=== PATIENT | female | born 1985 | race Caucasian/White ===

== ENCOUNTER 2016-10-22 16:02 | Inpatient (IN) | payer OTHER ==
--- NOTE | ~2016-10-22 | PN ---
Unit #: [id number] #: [id number] Patient: TERRIE WALSH [id number] [facility] [address] [place] [address] [id number] I MR#: [id number] NAME: TERRIE WALSH. ROOM: P257 Age: 30 Sex: F Admission Date: 10/22/2016 : 1985 Attending Physician: Claudio Garza M.D. Admitting Physician: Claudio Garza M.D. Primary Care Physician: Primary Care Physician Janay JUSTIN NOTES DATE OF SERVICE 10/25/2016 DISCUSSION Ms. Walsh is a 30-year-old white female who was seen today. Chart was reviewed and case was discussed with staff. She remains anxious, withdrawn, depressed, and rather seclusive to herself. Meanwhile, she has been cooperative with treatment recommendations and has been taking the medications and tolerating them fairly well with no reported side effects. MENTAL STATUS EXAMINATION Young white female who is casually dressed with fair personal hygiene, appears to be in no acute distress or discomfort. She was awake and alert on interaction with intact orientation. Her mood is anxious with congruent affect. She denies any suicidal or homicidal ideations and also denies any auditory or visual hallucinations. Her insight and judgment remain slightly impaired. TREATMENT PLAN 1. We will continue her on her current medications and treatment protocol. We will monitor her response to the medications and make further adjustments as needed. 2. We will continue to follow up. Dictated by... Sindy Magallanes/derrek TD: 10/26/2016 06:50 JOB #: [id number] [facility] PROGRESS NOTES X Claudio Garza MD PROGRESS NOTE
--- NOTE | ~2016-10-22 | PA ---
Unit #: [id number] #: [id number] Patient: TERRIE VERMA [id number] [facility] [address] [place] [address] [id number] MR#: [id number] NAME: TERRIE VERMA. ROOM: P257 Age: 30 Sex: F Admission Date: 10/22/2016 : 1985 Date of Assessment: Attending Physician: Claudio Garaz M.D. Admitting Physician: Claudio Garza M.D. Primary Care Physician: Primary Care Physician No PSYCHIATRIC ASSESSMENT DATE OF SERVICE 10/22/2016. IDENTIFYING DATA Ms. Ramirez is a 30-year-old single white female, who is a resident of [place], [place], and was transferred to us from [facility] in [place], [place]. CHIEF COMPLAINT "[facility] to [facility], but I have not been in the last 3 months. I have had several surgeries lately." HISTORY OF PRESENT ILLNESS Ms. Ramirez is a 30-year-old white female, who was transferred to us from the emergency room, where she presented reporting feeling very overwhelmed with life lately stating that she has had several surgeries lately and two hemorrhoidectomies and gallbladder removal "I had to move during that time as well and no one would help me move, so I really felt like I don't mean anything to anyone." The patient stated that she took an intentional overdose of Tylenol PM, Sudafed, lisinopril, and 40 naproxen with an intention to end her life and she stated "is it normal to regret that I did not . I had an in October and I have not been the same since." She reports that she has a job and she has been missing work due to illness and reports increasing depression, disturbed sleep, psychomotor retardation, poor energy level, anhedonia, feelings of hopelessness and helplessness, and suicidal ideation with an intent and plan and attempt and as such, was medically cleared at [facility] and was then transferred to us. SUBSTANCE ABUSE HISTORY The patient denies any alcohol or drug abuse. PAST PSYCHIATRIC HISTORY The patient has had a history of outpatient counseling in the past, and review of the medical records indicate that she is currently on Celexa 20 mg a day, but has not been able to show a therapeutic response to the medication. PAST MEDICAL HISTORY Status post hemorrhoidectomy, cholecystectomy, and asthma. ALLERGIES Sulfa drugs and iodine. Unit #: [id number] #: [id number] Patient: TERRIE VERMA PERSONAL AND SOCIAL HISTORY A 30-year-old white female, who reports that she lives at home with her boyfriend and two sons and a daughter and has 3 children in total and is currently employed, but has been missing work due to her health condition. MENTAL STATUS EXAMINATION Young white female, who was casually dressed with fair personal hygiene, appears to be in no acute distress or discomfort. She was awake and alert on interaction with intact orientation to time, place, and person. Her mood was anxious and depressed with a congruent affect. Her speech was slow and goal directed. She reports having suicidal ideations, but denies any homicidal ideations and also denies any auditory or visual hallucinations. Her insight and judgment remain significantly impaired. DIAGNOSTIC IMPRESSION Psychiatric: Major depressive disorder, recurrent, moderate, without psychotic features. Medical: Status post cholecystectomy, hemorrhoidectomy, and asthma. Stressors: Moderate psychosocial stressors. TREATMENT PLAN 1. The patient has presented with a history of substance abuse and mood disorder and has been decompensating and will need inpatient hospitalization for safety and stabilization. We will start her back on her home medications and we will adjust the medications and monitor response. 2. Supportive therapy was provided to the patient. 3. Safe, structured, and nourishing environment will be provided. ESTIMATED LENGTH OF STAY 5 to 7 days. ABILITY TO HELP SELF Limited. WILLINGNESS TO HELP SELF The patient appears to be willing to help self. STRENGTHS 1. Communicative. 2. Cooperative. PROBLEMS 1. Chronic dysphoric symptoms. 2. Poor social support system. DISCHARGE CRITERIA This will be contingent upon the patient's ability to show resolution of her depression and anxiety and her ability to stay safe to herself, particularly after discharge from the hospital. Dictated by... Sindy Magallanes/javy Unit #: [id number] #: [id number] Patient: TERRIE VERMA TD: 10/23/2016 12:53 JOB #: [id number] PSYCHIATRIC ASSESSMENT X Claudio Garza MD PSYCHIATRIC ASSESSMENT
--- NOTE | ~2016-10-22 | HP ---
Unit #: [id number] #: [id number] Patient: SHEYLA VERMA [id number] [place] [address] [id number] MR#: [id number] NAME: SHEYAL VERMA. ROOM: P257 Age: 30 Sex: F Admission Date: 10/22/2016 : 1985 Attending Physician: Claudio Garza M.D. Admitting Physician: Claudio Garza M.D. Primary Care Physician: Primary Care Physician No HISTORY AND PHYSICAL HISTORY OF PRESENT ILLNESS Sheyla is a 30 year old admitted to [address] [place] [address] with depression and after an overdose of Tylenol P.M., Sudafed, lisinopril and naproxen. PAST MEDICAL HISTORY 1. History of kidney stones. 2. Asthma. 3. History of migraine headaches. PAST SURGICAL HISTORY 1. Hemorrhoidectomy. 2. Cholecystectomy. 3. section x2. 4. Lithotripsy. ALLERGIES Sulfa, shell fish. SOCIAL HISTORY Smokes one pack per day. Drinks alcohol rarely. Admits to abusing opioids on occasion. FAMILY HISTORY Medically noncontributory. REVIEW OF SYSTEMS CONSTITUTIONAL: No fever or chills. HEENT: Denies any sore throat, ear pain or runny nose. CARDIOVASCULAR: Denies chest pain, irregular heart rhythm or palpitations. CHEST: Denies shortness of breath or cough. No hemoptysis. GASTROINTESTINAL: Denies nausea, vomiting, diarrhea or chronic constipation. ENDOCRINE: Denies history of increased thirst or urination. No recent significant weight loss or gain. GENITOURINARY: Denies dysuria, frequency, or hematuria. SKIN: Denies any rashes. HEMATOLOGIC: Denies history of increased bleeding or bruising. MUSCULOSKELETAL: Denies any hot, swollen joints. No generalized muscle pain. NEUROLOGIC: Denies problems with vision or speech. No frequent, severe headaches. No numbness, tingling or weakness in any extremities. Denies Unit #: [id number] #: [id number] Patient: SHEYLA VERMA loss of bladder or bowel control. CURRENT MEDICATIONS No orders received at the time of this dictation. PHYSICAL EXAMINATION GENERAL: Alert, well-nourished, in no apparent distress. VITAL SIGNS: Blood pressure 120/62, heart rate 80, respirations 16, temperature 98.6. SKIN: Warm and dry without rash or lesion. HEENT: Normocephalic. TMs not viewed. Oral and nasal passages clear. Conjunctivae clear. Pupils equal, round and reactive to light and accommodation. Extraocular movements intact. NECK: Supple without lymphadenopathy or thyromegaly. HEART: Regular rate and rhythm without murmur. LUNGS: Clear. ABDOMEN: Soft, nontender. : Not done. EXTREMITIES: No evidence of cyanosis, clubbing or edema. Moves all extremities without focal deficit. NEUROLOGICAL: Grossly within normal limits. Cranial Nerves: II: Visual gonzales are intact. III, IV AND : Extraocular movements are intact. Pupils are equal, round and reactive to light. V: Facial sensation is grossly normal. VII: Facial movements and expression are normal. VIII: Auditory acuity grossly intact. IX, X: Uvula is midline. Phonation is normal. XI: Patient shrugs shoulders and turns head normally. XII: Tongue protrudes in the midline. Sensory and Motor Function: Sensory and motor sensation is grossly normal. Motor: moves all extremities well. Coordination: Gait is normal. Deep Tendon Reflexes: Intact. IMPRESSION Psychiatric admission RECOMMENDATIONS PSYCHIATRIC: Per psychiatrist. MEDICAL: I see no contraindications to participating in facility's activities. MEDICAL PROGNOSIS Good. MEDICAL CONDITION Stable. Dictated by... Karen BrisenoANestor-Harmony. for Sindy Carmona/june TD: 10/23/2016 00:17 JOB #: [id number] Unit #: [id number] #: [id number] Patient: SHEYLA VERMA HISTORY AND PHYSICAL X Clarisse Ding X HISTORY AND PHYSICAL
--- NOTE | ~2016-10-22 | PN ---
Unit #: [id number] #: [id number] Patient: TERRIE VERMA [id number] [facility] [address] [place] [address] [id number] MR#: [id number] NAME: TERRIE VERMA. ROOM: P257 Age: 30 Sex: F Admission Date: 10/22/2016 : 1985 Attending Physician: Claudio Garza M.D. Admitting Physician: Claudio Garza M.D. Primary Care Physician: Primary Care Physician Janay JUSTIN NOTES DATE OF SERVICE: 10/23/2016 SUBJECTIVE Ms. Ramirez is a 30-year-old white female, who was seen today and chart was reviewed and the case was discussed with the staff. She has been anxious, withdrawn, and rather seclusive to herself. Meanwhile, she has been cooperative with the treatment recommendations and has been taking the medications and tolerating them fairly well with no reported side effects. MENTAL STATUS EXAMINATION Young white female, who was casually dressed with fair personal hygiene, appears to be in no acute distress or discomfort. She was awake and alert on interaction with intact orientation. Her mood was anxious with a congruent affect. She denies any suicidal or homicidal ideations and also denies any auditory or visual hallucinations. Her insight and judgment remain slightly impaired. TREATMENT PLAN 1. We will continue her on her current medications and treatment protocol and we will monitor her response to the medications and make further adjustments as needed. 2. We will continue to follow up. Dictated by... Sindy Magallanes/javy TD: 10/24/2016 11:09 JOB #: [id number] [facility] PROGRESS NOTES X Claudio Garza MD PROGRESS NOTE
--- NOTE | ~2016-10-22 | A ---
[facility] Nutrition Therapy DATE: 10/24/16 Patient: TERRIE VERMA Physician: SEBASTIEN Address: [address] [facility] Room/Bed: [address], Zip: [place] [address] Admit Date: 10/22/16 Date of : [birth year] Height: 5 6 Weight: 119 54.88100 NUTRITIONAL ASSESSMENT: REASON: NUTRITIONAL RISK POINT- EATING DISORDER WITH ACTIVE SYMPTOMS PATIENT ADMITTED FOR DEPRESSION AND INTENTIONAL O/D PMH: ASTHMA, KIDNEY STONES Anthropometrics: HT: 5'6", WT: 120#, BMI: 19.4, %IBW: 92 Labs: NONE Meds: DESYREL, CELEXA Assessment: CHART REIVEWED, EVENTS NOTED. PATIENT IS A 30 Y/O FEMALE ADMITTED FOR DEPRESSION AND INTENTIONAL O/D. PATIENT IS CURRENTLY UNEMPLOYED BUT MISSES WORK D/T ILLNESS, LIVES IN AN APARTMENT WITH HER BOYFRIEND AND 3 CHILDREN, SMOKES 1 PPD, AND ADMITES TO USING OPIOIDS ON OCCASION. PATIENT STATES A POOR APPETITE WITH A 50# WEIGHT LOSS X LAST SEVERAL MONTHS. NURSING REPORTS FAIR PO INTAKES. PATIENT DOES HAVE PURGING TENDENCIES, WHICH STAFF IS AWARE OF, AND PATIENT IS ON A BATHROOM LOCKOUT 2 HOURS AFTER EACH MEAL. PATIENT ALSO HAS A HX OF OUTPATIENT COUSELING AND HAS A SUSPECTED NON-COMPLIANCE WITH MEDICATIONS PRIOR TO ADMIT. THERE ARE NO SKIN OR GI ISSUES NOTED ATT. CURRENT PSYCH MEDS MAY CAUSE AN INCREASE IN WEIGHT AND APPETITE. PATIENT'S BMI IS WITHIN A HEALTHY RANGE AND SHE IS 92% OF HER IBW. FOLLOWING DISCHARGE, OUTPATIENT TREATMENT FOR EATING DISORDER IS HIGHLY RECOMMENDED AND ENCOURAGED. PATIENT IS ON A REGULAR DIET WITH LARGE PORTION ENTREES. Dx: INADEQUATE NUTRIENT INTAKE R/T CURRENT CONDITION, EATING DISORDER AEB PURGING TENDENCIES, SELF-REPORTED WEIGHT LOSS AND DECREASED APPETITE Intervention: 1. REGULAR DIET WITH LARGE PORTION ENTREES, 2. MEDS PER MD, 3. PSYCH Monitoring, Evaluation and Goals: 1. ADEQUATE PO INTAKES >50% OF MEALS 2. PREVENT, CORRECT MICRO/MACRO NUTRIENT DEFICIENCIES 3. MAINTAIN CURRENT WEIGHT, PREVENT FURTHER WEIGHT LOSS MONITOR: WEIGHTS, LABS, PO/FLUID INTAKES Recommendations: 1. CONTINUE REGULAR DIET TOLERATED [facility] Nutrition Therapy DATE: 10/24/16 Patient: TERRIE VERMA Physician: SEBASTIEN Address: [address] [facility] Room/Bed: [address] [place] [address], Zip: [place] [address] Admit Date: 10/22/16 Date of : [birth year] Height: 5 6 Weight: 119 54.65351 2. ENCOURAGE ADEQUATE PO AND FLUID INTAKES. CONTINUE WITH BATHROOM LOCKOUT AND MONITORING PATIENT FOR SYMPTOMS OF EATING DISORDER 3. MONITOR WEIGHTS ROUTINELY (EVERY 3-4 DAYS) 4. OBTAIN A BMP TO ENSURE PATIENT'S NUTRITIONAL LAB VALUES ARE WNL D/T EATING DISORDER. RD TO F/U PER PROTOCOL AND PRN R/T PATIENT MODERATELY COMPROMISED Respectfully, JAS CUELLAR, RD, LD [facility] cc: client file
--- NOTE | ~2016-10-22 | PN ---
Unit #: [id number] #: [id number] Patient: TERRIE WALSH [id number] [facility] [address] [place] [address] [id number] MR#: [id number] NAME: TERRIE WALSH. ROOM: P257 Age: 30 Sex: F Admission Date: 10/22/2016 : 1985 Attending Physician: Claudio Garza M.D. Admitting Physician: Claudio Garza M.D. Primary Care Physician: Primary Care Physician Janay JUSTIN NOTES DATE OF SERVICE 10/24/2016 DISCUSSION Ms. Walsh is a (1) __-year-old white female who was seen today. Chart was reviewed and case was discussed with the staff. She has been anxious and withdrawn though has not shown any agitation or irritability and has been cooperative with treatment recommendations as she has been taking the medications and tolerating them fairly well with no reported side effects. MENTAL STATUS EXAMINATION Young white female who is casually dressed with fair personal hygiene, appears to be in no acute distress or discomfort. She was awake and alert on interaction with intact orientation. Her mood is anxious with congruent affect. She denies any suicidal or homicidal ideations and also denies any auditory or visual hallucinations. Her insight and judgment remain slightly impaired. TREATMENT PLAN 1. We will continue her on her current medications and treatment protocol. We will monitor her response to the medications and make further adjustments as needed. 2. We will continue to follow up. Dictated by... Sindy Magallanes/madelyng TD: 10/25/2016 13:18 JOB #: [id number] [facility] PROGRESS NOTES X Claudio Garza MD PROGRESS NOTE
--- NOTE | ~2016-10-22 | PN ---
Unit #: [id number] #: [id number] Patient: TERRIE WALSH [id number] [facility] [address] [place] [address] [id number] MR#: [id number] NAME: TERRIE WALSH. ROOM: P257 Age: 30 Sex: F Admission Date: 10/22/2016 : 1985 Attending Physician: Claudio Garza M.D. Admitting Physician: Claudio Garza M.D. Primary Care Physician: Primary Care Physician Janay JUSTIN NOTES DATE 10/26/2016 DISCUSSION Ms. Walsh is a 30-year-old white female who was seen today and chart was reviewed and case was discussed with the staff. She has been anxious, withdrawn and rather seclusive to herself. Meanwhile, she has been cooperative with treatment recommendations and has been taking medications and tolerating them fairly well with no reported side effects. MENTAL STATUS EXAMINATION Young white female who was casually dressed with fair personal hygiene and appears to be in no acute distress or discomfort. She was awake and alert on interaction with intact orientation. Her mood was anxious and depressed with congruent affect. She denies any suicidal or homicidal ideations and also denies any auditory or visual hallucinations. Her insight and judgement remains slightly impaired. TREATMENT PLAN Will continue on current medications and treatment protocol. Will monitor her response and make further adjustments as needed. Dictated by... Sindy Magallanes/jamal TD: 10/26/2016 18:23 JOB #: [id number] [facility] PROGRESS NOTES X Claudio Garza MD PROGRESS NOTE
--- NOTE | ~2016-10-22 | DS ---
Unit #: [id number] #: [id number] Patient: TERRIE VERMA [id number] [facility] [address] [place] [address] [id number] MR#: [id number] NAME: TERRIE VERMA. ROOM: [facility] Age: 30 Sex: F Admission Date: 10/22/2016 : 1985 Discharge Date: Attending Physician: Claudio Garza M.D. Primary Care Physician: Primary Care Physician No DISCHARGE SUMMARY IDENTIFYING DATA Ms. Ramirez is a 30-year-old white female who was transferred to us from [facility] in [place], [place]. DISCHARGE DIAGNOSES Psychiatric: Major depressive disorder, recurrent, moderate, without psychotic features. Medical: Status post cholecystectomy, hemorrhoidectomy, and asthma. Stressors: Moderate psychosocial stressors. HISTORY OF PRESENT ILLNESS Please see initial psychiatric evaluation for details. PAST PSYCHIATRIC HISTORY Please see initial psychiatric evaluation for details. PAST MEDICAL HISTORY Please see initial psychiatric evaluation for details. HOSPITAL COURSE The patient [facility] and was oriented to the hospital environment. Routine p.r.n. medications were initiated, and she was started back on her home medications including her Celexa which was then increased to 40 mg a day and trazodone was also given to help her sleep. She was taking the medications regularly and was tolerating them fairly well and was able to show a decent therapeutic response with improvement in depression and anxiety, and was willing to continue treatment on an outpatient basis and as such, it was decided that she will be discharged home and will continue treatment on an outpatient basis. DISCHARGE MEDICATIONS Celexa 40 mg a day for depression and trazodone 100 mg at bedtime for sleep. DISCHARGE CONDITION Stable. PROGNOSIS Fair. Dictated by... Claudio Garza M.D. Unit #: [id number] #: [id number] Patient: TERRIE VERMA IAA/modl TD: 10/27/2016 11:49 JOB #: [id number] DISCHARGE SUMMARY X Claudio Garza MD X DISCHARGE SUMMARY
--- NOTE | ~2016-10-22 | DS ---
Unit #: [id number] #: [id number] Patient: TERRIE VERMA [id number] [facility] [address] [place] [address] [id number] MR#: [id number] NAME: TERRIE VERMA. ROOM: P257 Age: 30 Sex: F Admission Date: 10/22/2016 : 1985 Discharge Date: 10/29/2016 Attending Physician: Claudio Garza M.D. Primary Care Physician: Primary Care Physician No DISCHARGE SUMMARY JOB NOTE: ADDENDUM ADDENDUM Ms. Ramirez is a 30-year-old white female who was scheduled to be discharged home earlier in the week, however, she was complaining of persistent depression and feelings of hopelessness and suicidal ideations, and not having any good support system outside of the hospital over the weekend and as such, discharge planning was cancelled and she was maintained on suicide precautions and medications were maintained and was seen to be doing much better and was cooperative with treatment recommendations and was able to show a decent therapeutic response, and was willing to continue treatment on an outpatient basis and was denying any further suicidal ideations, intent, or plan and as such, it was decided that she will be discharged home on her current regimen. DISCHARGE CONDITION Stable. PROGNOSIS Fair. Dictated by... Sindy Magallanes/javy TD: 10/29/2016 07:35 JOB #: [id number] DISCHARGE SUMMARY X Claudio Garza MD X DISCHARGE SUMMARY
--- NOTE | ~2016-10-22 | PN ---
Unit #: [id number] #: [id number] Patient: TERRIE WALSH [id number] [facility] [address] [place] [address] [id number] I MR#: [id number] NAME: TERRIE WALSH. ROOM: P257 Age: 30 Sex: F Admission Date: 10/22/2016 : 1985 Attending Physician: Claudio Garza M.D. Admitting Physician: Claudio Garza M.D. Primary Care Physician: Primary Care Physician Janay ETIENNE PROGRESS NOTES DATE 10/28/2016 DISCUSSION Ms. Walsh is a 30-year-old white female who was seen today and chart was reviewed and case was discussed with the staff. She was scheduled to be discharge yesterday however, she reported persistent depression and anxiety and feelings of hopelessness and not feeling safe and as such discharge planning was cancelled. The patient was once again laying in bed very despondent and seclusive to herself with blunted affect and minimal interactions and she reports not feeling good. MENTAL STATUS EXAMINATION Young white female who was casually dressed with fair personal hygiene appears to be in no acute distress or discomfort. The patient was awake and alert and interaction with intact orientation. Her mood was anxious and depressed with a current affect. She reports having suicidal ideations but denies any homicidal ideation. Her insight and judgement remains slightly impaired. TREATMENT PLAN 1. We will continue her on her current medications and treatment protocol. We will monitor her response and make further adjustments as needed. 2. We will continue to follow up. Dictated by... Sindy Magallanes/june TD: 10/30/2016 04:19 JOB #: [id number] Unit #: [id number] #: [id number] Patient: TERRIE WALSH [facility] PROGRESS NOTES X Claudio Garza MD PROGRESS NOTE
== END 2016-10-29 09:50 | disposition home or self-care (01) | DRG 885 ==
LOC: P2L 16:02
DX: F33.1 Major depressive disorder, recurrent, moderate (principal); R45.851 Suicidal ideations; J45.909 Unspecified asthma, uncomplicated; Z88.2 Allergy status to sulfonamides; Z91.013 Allergy to seafood; F17.200 Nicotine dependence, unspecified, uncomplicated